=== PATIENT | female | born 1960 | race Caucasian/White ===

== ENCOUNTER 2019-09-09 09:09 | Inpatient (IN) ==
--- NOTE | 2019-08-02 11:05 | PAT Medication Instructions ---
Medication Instructions Date of Service August 02, 2019 Home Medications baclofen 20 mg PO UD bisacodyl 5 mg PO HS buspirone 15 mg PO UD cholecalciferol (vitamin D3) [Vitamin D3] 5,000 unit PO DAILY diclofenac sodium 50 mg PO TID PRN hydrocortisone 15 mg PO BID indomethacin 50 mg PO BID PRN iron 1 tab PO DAILY levothyroxine [Synthroid] 88 mcg PO QAM lidocaine [Lidoderm] 3 patch TOPICAL DAILY linaclotide [Linzess] 290 mcg PO QAM meclizine 25 mg PO TID PRN montelukast 10 mg PO QAM oxycodone-acetaminophen [Percocet] 1 tab PO QID PRN pantoprazole 40 mg PO BID paroxetine HCl 40 mg PO QAM pregabalin [Lyrica] 150 mg PO BID rosuvastatin 10 mg PO HS tiotropium bromide [Spiriva Respimat] 2 puff INHALATION DAILY topiramate [Topamax] 100 mg PO UD ASK your surgeon for instructions diclofenac sodium 50 mg PO TID PRN indomethacin 50 mg PO BID PRN DO NOT take the morning of surgery baclofen 20 mg PO UD cholecalciferol (vitamin D3) [Vitamin D3] 5,000 unit PO DAILY iron 1 tab PO DAILY lidocaine [Lidoderm] 3 patch TOPICAL DAILY linaclotide [Linzess] 290 mcg PO QAM montelukast 10 mg PO QAM Take morning of surgery With a small sip of water, OTHERWISE NOTHING TO EAT OR DRINK AFTER MIDNIGHT: buspirone 15 mg PO UD (if needed) hydrocortisone 15 mg PO BID levothyroxine [Synthroid] 88 mcg PO QAM meclizine 25 mg PO TID PRN (if needed) oxycodone-acetaminophen [Percocet] 1 tab PO QID PRN (if needed, may be taken up to four hours before surgery) pantoprazole 40 mg PO BID paroxetine HCl 40 mg PO QAM pregabalin [Lyrica] 150 mg PO BID tiotropium bromide [Spiriva Respimat] 2 puff INHALATION DAILY topiramate [Topamax] 100 mg PO UD (if needed) Take evening before surgery baclofen 20 mg PO UD (if needed) bisacodyl 5 mg PO HS buspirone 15 mg PO UD (if needed) hydrocortisone 15 mg PO BID meclizine 25 mg PO TID PRN (if needed) oxycodone-acetaminophen [Percocet] 1 tab PO QID PRN (if needed) pantoprazole 40 mg PO BID pregabalin [Lyrica] 150 mg PO BID rosuvastatin 10 mg PO HS tiotropium bromide [Spiriva Respimat] 2 puff INHALATION DAILY topiramate [Topamax] 100 mg PO UD Other Notes If you have any questions please call us at [phone] or [phone] or [phone] or [phone]
--- NOTE | 2019-08-02 11:16 | Anesthesiology Consultation ---
Date of Service August 02, 2019 Assessment & Plan (1) Encounter for pre-operative examination: Endoscopic sinus surgery 04/10/14 = LMA #4 placed without incidence. Chart Review Chart Review: Acceptable Risk for Surgery and Patient seen in Pre Admission Testing Teaching & Discussion Instructed NPO after midnight before surgery, except medications with 15 cc of water. Medication instructions provided according to the PAT guidelines. History Surgery Operation Date: 09/02/19 13:35 Proposed Procedures p L4-L5 Decompression, Possible L5-S1 Fusion, Spinal Cord Monitoring - Pedro Luis Todd DO Height/Weight Height: 5 ft 5 in Weight: 69.2 kg Allergies Allergy/AdvReac Type Severity Reaction Status Date / Time blue dye Allergy Mild face swells Verified 07/26/19 11:42 duloxetine Allergy Mild face swells Verified 07/26/19 11:42 morphine AdvReac Intermediate violent Verified 08/05/19 09:28 vomiting DEMEROL AdvReac Intermediate violent Uncoded 08/05/19 09:28 vomiting Medications Home Medications Medication Instructions Recorded Confirmed Last Taken baclofen 20 mg PO UD 07/26/19 07/26/19 Unknown bisacodyl 5 mg PO HS 07/26/19 07/26/19 Unknown buspirone 15 mg PO UD 07/26/19 07/26/19 Unknown cholecalciferol (vitamin D3) 5,000 unit PO DAILY 07/26/19 07/26/19 Unknown [Vitamin D3] diclofenac sodium 50 mg PO TID PRN 07/26/19 07/26/19 Unknown hydrocortisone 15 mg PO BID 07/26/19 07/26/19 Unknown indomethacin 50 mg PO BID PRN 07/26/19 07/26/19 Unknown iron 1 tab PO DAILY 07/26/19 07/26/19 Unknown lidocaine [Lidoderm] 3 patch TOPICAL DAILY 07/26/19 07/26/19 Unknown linaclotide [Linzess] 290 mcg PO QAM 07/26/19 07/26/19 Unknown meclizine 25 mg PO TID PRN 07/26/19 07/26/19 Unknown montelukast 10 mg PO QAM 07/26/19 07/26/19 Unknown oxycodone-acetaminophen [Percocet] 1 tab PO QID PRN 07/26/19 07/26/19 Unknown pantoprazole 40 mg PO BID 07/26/19 07/26/19 Unknown paroxetine HCl 40 mg PO QAM 07/26/19 07/26/19 Unknown pregabalin [Lyrica] 150 mg PO BID 07/26/19 07/26/19 Unknown rosuvastatin 10 mg PO HS 07/26/19 07/26/19 Unknown tiotropium bromide [Spiriva 2 puff INHALATION DAILY 07/26/19 07/26/19 Unknown Respimat] topiramate [Topamax] 100 mg PO UD 07/26/19 07/26/19 Unknown levothyroxine [Synthroid] 75 mcg PO QAM 08/02/19 08/02/19 Unknown Past Medical History Medical History Abnormality of pituitary gland Following with endocrinology Anxiety Borderline hyperlipidemia Chronic sinusitis Degenerative disc disease Depression Empty sella syndrome Fibromyalgia GERD (gastroesophageal reflux disease) History of syncope hospitalized [facility] Jan 2019 for syncope. reports cardiac workup was negative. syncope r/t thyroid function; thyroid medication adjusted - no issues since Hypothyroidism Intracranial hypertension idiopathic - follows w/ Dr. Oneill in [place] Migraines Osteoarthritis Scoliosis Smoker says this is why she uses Spiriva (presumed COPD, but CXR WNL) Spinal stenosis TMJ (temporomandibular joint disorder) Has never locked. Exercise / Class Metabolic Activity II 4-5 Yardwork/Stairs/Walk up hill (Denies CP or SOB with 1 FOS but moves slo wly 2/2 chronic pain) Past Family History Family History Mother Family history of diabetes mellitus Brother Family history of diabetes mellitus Sister Family history of diabetes mellitus Sister Family history of diabetes mellitus Brother Family history of diabetes mellitus Other No family history of adverse response to anesthesia Past Surgical History Surgical History History of appendectomy History of carpal tunnel release of both wrists History of section History of colonoscopy History of esophagogastroduodenoscopy (EGD) History of lumbar discectomy History of prior ablation treatment for back pain History of sinus surgery History of tonsillectomy History of total abdominal hysterectomy and bilateral salpingo-oophorectomy History of tubal ligation Past Anesthesia History No Hx of Anesthesia Complications and No Family Hx of Anesthesia Complications History of PONV No Hx of PONV and Hx of Motion Sickness (only with reading in a car) Social History Smoking Status: Current every day smoker tobacco type: cigarettes Smoking cigarettes per day: 1/2 - 1 ppd Do You Dip or Chew Tobacco: No Hx Alcohol Use: No Hx Substance Use: No substance use type: does not use Review of Systems Pt denies any recent chest pain, shortness of breath, palpitations, cough, fever or URI. Physical Exam Vital Signs BP: 110/76 P: 70bpm SPO2: 97% RA T: 98.1 F R: 16 ENMT Mouth: + dental restorations ("composite" in lower R cuspid) and + chipped teeth; no loose teeth Thyromental Distance: > or= 3.5 Finger Breadths (.5) Mallampati Class: I Neck normal visual inspection; neck extension not limited (but + pain with full extension) Respiratory normal respiratory effort Auscultation: + diminished lung sounds (B/L) and + rhonchi (Inspiratory R side, L side CTA) Cardiovascular Rate/Rhythm: regular rate and regular rhythm Heart Sounds: no murmur Vessels: no carotid bruit Extremities: no edema Testing Laboratory Results 08/02/19 11:29 08/02/19 11: PT 9.9 Seconds (9.0-12.0) 08/02/19 11: INR 0.9 (0.9-1.1) 08/02/19 11:29 APTT 23.5 Seconds (21.0-31.0) 08/02/19 11:29 Urine Color Yellow 08/02/19 11:29 Urine Appearance Clear (Clear) 08/02/19 11:29 Urine pH 7.0 (4.5-7.5) 08/02/19 11:29 Ur Specific [place] 1.009 (1.000-1.030) 08/02/19 11: Urine Protein Negative (Negative) 08/02/19 11: Urine Glucose (UA) Negative (Negative) 08/02/19 11: Urine Ketones Negative (Negative) 08/02/19 11: Urine Nitrite Negative (Negative) 08/02/19 11:29 Ur Leukocyte Esterase Negative (Negative) 08/02/19 11:29 Blood Type A Positive 08/02/19 11: Antibody Screen NEGATIVE 08/02/19 11:29 Electrocardiogram Date: 08/02/19 Findings: + NSR @ (60bpm) Low voltage QRS. No significant change from 2013 EKG. Chest X-Ray Date: 08/02/19 Findings: + NAD Echocardiogram Date: 04/11/19 EF: 55% Normal EF. Normal right ventricular size and function. Normal atria. Mild mitral regurgitation. Mild pulmonic regurgitation.
--- NOTE | 2019-08-02 11:59 | XRay Report ---
XR chest Pre-admission PA/Lat HISTORY: Preop. COMPARISON: Chest 02/27/2016. FINDINGS: The lungs are clear. Cardiac silhouette is normal in size. No pleural effusions. No pneumot horax. IMPRESSION: No acute process. ACT 112: Negative or not required by law. Electronically signed by: Rony Bruno M.D. 08/02/2019 11:58 AM
[2019-08-02 12:15] LABS: Appearance Urine Clear (Clear); Basophils # (auto) 0.06 K/uL (0-0.2); Basophils % (auto) 0.8 %; Bilirubin Urine Negative (Negative); Blood Urine Negative (Negative); Color Urine Yellow; Eosinophils # (auto) 0.25 K/uL (0-0.5); Eosinophils % (auto) 3.3 %; Glucose Urine UA Negative (Negative); Hematocrit (blood only) 39.9 % (37-47); Hemoglobin 12.6 g/dL (12.0-16.0); Immature Granulocytes # (auto) 0.05 K/uL (0.00-0.02); Immature Granulocytes % (auto) 0.7 %; Ketones Urine Negative (Negative); Leukocyte Esterase Urine Negative (Negative); Lymphocytes # (auto) 1.54 K/uL (1.2-3.4); Lymphocytes % (auto) 20.5 %; Mean Corpuscular Hemoglobin 29.1 pg (25-34); Mean Corpuscular Hgb Conc 31.6 g/dL (32-36); Mean Corpuscular Volume 92.1 fL (80-100); Mean Platelet Volume 11.3 fL (7.4-10.4); Monocytes # (auto) 0.71 K/uL (0.11-0.59); Monocytes % (auto) 9.4 %; Neutrophils # (auto) 4.91 K/uL (1.4-6.5); Neutrophils % (auto) 65.3 %; Nitrite Urine Negative (Negative); Platelet Count 209 K/uL (130-400); Protein Urine Negative (Negative); RDW Standard Deviation 51.1 fL (36.4-46.3); Red Blood Count 4.33 M/uL (4.2-5.4); Specific Gravity Urine 1.009 (1.000-1.030); Urobilinogen Urine Negative (Negative); White Blood Count 7.52 K/uL (4.8-10.8)
[2019-08-02 12:24] LABS: BUN Creatinine Ratio 20.9 (10-20); Calcium 8.8 mg/dl (8.5-10.1); Creatinine Clr Calc Pharmacy 58.9 ml/min; Est GFR (African American) 69.9; Est GFR (Non-African American) 60.3; Potassium 4.5 mmol/L (3.5-5.1)
[2019-08-02 12:27] LABS: INR 0.9 (0.9-1.1); Partial Thromboplastin Ratio 0.8; Partial Thromboplastin Time 23.5 Seconds (21.0-31.0); Prothrombin Time 9.9 Seconds (9.0-12.0)
--- NOTE | 2019-08-02 15:57 | Electrocardiogram Report ---
Test Reason : Blood Pressure : / mmHG Vent. Rate : 060 BPM Atrial Rate : 060 BPM P-R Int : 148 ms QRS Dur : 086 ms QT Int : 424 ms P-R-T Axes : 050 -07 042 degrees QTc Int : 424 ms Normal sinus rhythm Low voltage QRS Borderline ECG When compared with ECG of 18-MAR-2014 11:45, No significant change was found Confirmed by Freddy Lafleur ([id number]) on 08/02/2019 3:56:36 PM Referred By: Pedro Luis Todd Confirmed By:Tyrone Lafleur
--- NOTE | 2019-08-30 11:59 | History & Physical Report ---
Date of Service August 30, 2019 Assessment & Plan (1) Neurogenic claudication due to lumbar spinal stenosis: At this time the patient is noting marked decline in ability to ambulate secondary to both pain and weakness. She clinically demonstrates deficits to testing lower extremities. Subsequently I am recommending urgent decompression fusion at L4-5 and possibly L5-S1. Hopefully urgently addressing her neural compression will eliminate the risk of permanent neurologic sequelae in the form of weakness and lower extremity dysfunction. Brace benefits pros cons and alternatives were outlined in detail. This time we will try to have surgery range performed the rest of the time. Present on Admission?: Yes History of Present Illness Chief Complaint: Back with bilateral leg pain and weakness Primary Care Provider: Kirk Goodrich DO This is a 58-year-old female who presents with back pain and bilateral leg pain and weakness. Is been progressive in nature. She is undergone extensive course of nonoperative care and now notes marked limitation with ambulation with progressive bilateral leg weakness. Allergies Allergy/AdvReac Type Severity Reaction Status Date / Time blue dye Allergy Mild face swells Verified 07/26/19 11:42 duloxetine Allergy Mild face swells Verified 07/26/19 11:42 meperidine [From Demerol] AdvReac Intermediate VIOLENT Verified 08/27/19 08:27 VOMITING morphine AdvReac Intermediate violent Verified 08/05/19 09:28 vomiting Home Medications Home Medications Medication Instructions Recorded Confirmed Type baclofen 20 mg PO UD 07/26/19 07/26/19 History bisacodyl 5 mg PO HS 07/26/19 07/26/19 History buspirone 15 mg PO UD 07/26/19 07/26/19 History cholecalciferol (vitamin D3) 5,000 unit PO DAILY 07/26/19 07/26/19 History [Vitamin D3] diclofenac sodium 50 mg PO TID PRN 07/26/19 07/26/19 History hydrocortisone 15 mg PO BID 07/26/19 07/26/19 History indomethacin 50 mg PO BID PRN 07/26/19 07/26/19 History iron 1 tab PO DAILY 07/26/19 07/26/19 History lidocaine [Lidoderm] 3 patch TOPICAL DAILY 07/26/19 07/26/19 History linaclotide [Linzess] 290 mcg PO QAM 07/26/19 07/26/19 History meclizine 25 mg PO TID PRN 07/26/19 07/26/19 History montelukast 10 mg PO QAM 07/26/19 07/26/19 History oxycodone-acetaminophen [Percocet] 1 tab PO QID PRN 07/26/19 07/26/19 History pantoprazole 40 mg PO BID 07/26/19 07/26/19 History paroxetine HCl 40 mg PO QAM 07/26/19 07/26/19 History pregabalin [Lyrica] 150 mg PO BID 07/26/19 07/26/19 History rosuvastatin 10 mg PO HS 07/26/19 07/26/19 History tiotropium bromide [Spiriva 2 puff INHALATION DAILY 07/26/19 07/26/19 History Respimat] topiramate [Topamax] 100 mg PO UD 07/26/19 07/26/19 History levothyroxine [Synthroid] 75 mcg PO QAM 08/02/19 08/02/19 History Past Med/Surg History Medical History Abnormality of pituitary gland Following with endocrinology Anxiety Borderline hyperlipidemia Chronic sinusitis Degenerative disc disease Depression Empty sella syndrome Fibromyalgia GERD (gastroesophageal reflux disease) History of syncope hospitalized [facility] Jan 2019 for syncope. reports cardiac workup was negative. syncope r/t thyroid function; thyroid medication adjusted - no issues since Hypothyroidism Intracranial hypertension idiopathic - follows w/ Dr. Oneill in [place] Migraines Osteoarthritis Scoliosis Smoker says this is why she uses Spiriva (presumed COPD, but CXR WNL) Spinal stenosis TMJ (temporomandibular joint disorder) Has never locked. Surgical History History of appendectomy History of carpal tunnel release of both wrists History of section History of colonoscopy History of esophagogastroduodenoscopy (EGD) History of lumbar discectomy History of prior ablation treatment for back pain History of sinus surgery History of tonsillectomy History of total abdominal hysterectomy and bilateral salpingo-oophorectomy History of tubal ligation Family History Mother Family history of diabetes mellitus Brother Family history of diabetes mellitus Sister Family history of diabetes mellitus Sister Family history of diabetes mellitus Brother Family history of diabetes mellitus Other No family history of adverse response to anesthesia Social History Preferred Language: Togolese Communication Ability: Effective 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: No Beliefs That Will Affect Care: None Current Living Situation: Significant Other Other Information That Helps Us Care for You: No Feels Safe at Home: Yes Safety Concerns: Feels Safe At This Time Smoking Status: Current every day smoker Tobacco Type: cigarettes ; Cigarettes Per Day: 1/2 - 1 ppd ; Do You Dip or Chew Tobacco: No ; Second Hand Exposure: Yes (as a child) ; Tobacco Cessation Education Requested by Patient: No Hx Alcohol Use: No Hx Substance Use: No Physical Exam Physical Exam: Patient is alert and oriented 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 She notes the onset of bilateral quadricep weakness immediately. Bench exam reveals 4/5 bilateral quadriceps and dorsiflexion. Sensory appears to be symmetric and intact. There are no gross tension signs on today's exam. Heart is regular rate and rhythm Lungs clear to auscultation Results & Data Diagnostic Findings MRI lumbar spine demonstrates significant to space collapse at L5-S1. There is right greater than left neuroforaminal disease L4-5 and L5-S1. Axillary views demonstrate significant to severe central lateral recess stenosis at L4-5 with evidence of facet cyst. L5-S1 has marked subarticular disease bilaterally.
--- NOTE | 2019-09-09 07:15 | History & Physical Bridge Note ---
Date of Service September 09, 2019 History & Physical Bridge Note I have examined the patient, reviewed the History & Physical and in the interval since the performance of the History & Physical I have noted the following changes of clinical significance: no changes noted
[~2019-09-09 09:09] MED LIST: ACETAMINOPHEN 500 MG TAB PO SCH; CEFAZOLIN 1000MG 1,000 MG/7.5 ML SYR IV SCH; CeleBREX 200 MG CAP PO SCH; DEXAMETHASONE SOD INJ 4 MG/ML VIAL ONE; GABAPENTIN 600 MG DOSE PO SCH; LIDOCAINE HCL 2% 2 ML VIAL/AMP(20MG/ML) INFIL ONE; LR 15ML/HR IV SCH; MIDAZOLAM HCL 1 MG/ML 2ML VIAL ONE; PROPOFOL IV EMULSION 10 MG/ML 20 ML VIAL IV ONE; ROCURONIUM BROMIDE 10 MG/ML 5 ML VIAL ONE; fentaNYL citrate 100 MCG/2 ML VIAL ONE
[2019-09-09] MEDS ORDERED: ePHEDrine sulfate 50 MG/ML AMP IV PRN (10:50)
[2019-09-09] MEDS ORDERED: ONDANSETRON INJ 2 MG/ML 2 ML VIAL IV PRN ×2 (10:50→15:59)
[2019-09-09] MEDS ORDERED: HYDROmorphone INJ 1 MG/ML SYRINGE IV PRN (10:50)
[2019-09-09] MEDS ORDERED: ATROPINE SULFATE 0.1 MG/ML 10ML SYR IV PRN (10:50)
[2019-09-09] MEDS ORDERED: BACITRACIN INJ 50,000 UNIT VIAL ONE (11:53)
[2019-09-09] MEDS ORDERED: BUPIVACAINE/EPINEPHRINE 0.5% MPF 1:200,000 10 ML VIAL ONE (11:54)
[2019-09-09] MEDS ORDERED: ePHEDrine sulfate 50 MG/ML AMP ONE (12:49)
[2019-09-09] MEDS ORDERED: GLYCOPYRROLATE 0.2 MG/ML VIAL ONE (13:51)
[2019-09-09] MEDS ORDERED: NEOSTIGMINE METHYLSULFATE 5 MG/5 ML SYR ONE (13:51)
[2019-09-09] MEDS ORDERED: FLOSEAL HEMOSTATIC MATRIX 10ML TOP ONE (14:09)
[2019-09-09] MEDS ORDERED: DURASEAL DURAL SEALANT 5ML TOP ONE (14:10)
--- NOTE | 2019-09-09 14:11 | Operative Report ---
Post Operative Report Pre & Post Diagnosis Operation Date: 09/09/19 07:15 Pre-Op Diagnosis: LUMBAR SPINAL STENOSIS W NEUROGENIC CLAUDICATION Post-Op Diagnosis: LUMBAR SPINAL STENOSIS W NEUROGENIC CLAUDICATION I identified the patient and participated in the time-out.: Yes Procedure Operation Date: 09/09/19 07:15 Actual Procedures #1 lumbar decompression with bilateral medial facetectomies and foraminotomies L3-4, L4-5 and L5-S1. #2 posterior spinal fusion L4-5 L5-S1. #3 placement of posterior instrumentation L4-5 L5-S1. #4 placement locally harvested morselized autograft in the posterior lateral gutters. #5 placement infuse collagen sponge, master graft in the posterior lateral gutters. Surgeon Pedro Luis Todd DO Licensed Land Surveyor Nancy Kitchen Estimated Blood Loss 150 Findings Consistent with Post-Op Diagnosis Specimens None Indications This is a 58-year-old female presents with above-mentioned diagnosis. After noting marked decline in neurologic function we move forward with urgent decompression and fusion. Description of Procedure Patient was met with identified informed consent obtained. Patient was then taken to the operative suite underwent an patient placed in a prone position on the Pillo table on top of the Les frame. All bony prominences were well- padded eyes inspected to ensure no external pressure placed upon the. This point the lumbar spine was prepped and draped in the normal sterile fashion. Sharp dissection with the assistance of Bovie cautery was performed down to and exposing the lamina and transverse processes of L4-L5 and sacral ala bilaterally. From a caudal cephalad fashion complete laminectomy of L5 L4 and partial laminectomy L3 was performed including medial facetectomies and foraminotomies addressing severe spinal stenosis. Pedicle screws were then placed in L4-L5 and S1 levels bilaterally with assistance of fluoroscopy the process isaura locked in position. A less than 1 mm midline durotomy was noted. 4-0 Nurolon was utilized to close the durotomy site. A small amount of DuraSeal was then placed over the suture. No evidence of any further leak was noted. Transverse processes of L4-L5 and sacral ala were then burred to subcortical bleeding bone. Infuse collagen sponge master graft local autograft was then placed in the posterior lateral gutters. 15 round TEMITOPE drain inserted. Incision was then closed with 1 Vicryl the fascia 2-0 Vicryl subcutaneously and 4 Monocryl for final skin closure. Steri-Strip sterile dressings placed. Patient waken taken to PACU stable condition. Please note spinal cord monitoring was utilized that the procedure no changes noted. Lastly Nancy Kitchen was present at the entire procedure involved in patient positioning complex portions of the surgery and final skin closure. I attest to the content of the Intraoperative Record and any orders documented therein. Any exceptions are noted below.
--- NOTE | 2019-09-09 14:30 | Fluoroscopy Report ---
FL lumbar spine 2-3V CLINICAL HISTORY: 58 years-old Female presenting with L4-S1 DECOMPRESSION AND FUSION. TECHNIQUE: 2 fluoroscopic image(s) recorded as part of an intraoperative procedure. COMPARISON: 03/25/2016. FINDINGS/IMPRESSION: Posterior bilateral transpedicular screw and isaura fixation of L4-S1 new from prior exam. Laminectomies of L4 and L5 also new from prior. Normal anatomic alignment. Please see surgical report for further details. Fluoroscopy dosage (mGy): 40.73. Fluoroscopy time: 20.0 seconds. Number or time of high level fluoroscopy (HLF), digital spot, or digital subtraction images: 0. ACT 112: Negative or not required by law. Electronically signed by: Kolby Ventura M.D. 09/09/2019 2:29 PM
[2019-09-09] MEDS ORDERED: fentaNYL citrate 100 MCG/2 ML VIAL ONE ×2 (14:56→15:07)
[2019-09-09] MEDS ORDERED: ONDANSETRON INJ 2 MG/ML 2 ML VIAL ONE (14:56)
[2019-09-09] MEDS: fentaNYL citrate 100 MCG/2 ML VIAL IV PRN ×4 (14:57→15:12)
--- NOTE | 2019-09-09 15:57 | Anesthesiology Progress Note ---
Date of Service September 09, 2019 Anesthesia Post Procedure Vital Signs Vital Signs: Temp Pulse Pulse Resp BP Pulse Ox 09/09/19 15:44 68 16 124/77 100 09/09/19 15:35 36.6 C 64 16 117/72 100 09/09/19 15:25 36.6 C 68 16 119/69 100 09/09/19 15:15 67 16 118/75 100 09/09/19 15:05 80 16 136/78 100 09/09/19 14:55 87 16 122/81 100 09/09/19 14:46 36.2 C L 75 16 137/78 100 09/09/19 10:07 37 C 57 L 16 125/80 98 Transfer of Care Handoff Completed per policy Notes Mental Status: alert / awake / arousable Patient Amnestic to Procedure: Yes Nausea / Vomiting: adequately controlled Pain: adequately controlled Airway Patency, RR, SpO2: stable & adequate BP & HR: stable & adequate Hydration State: stable & adequate Anesthetic Complications: no major complications apparent
[2019-09-09] MEDS ORDERED: bisacodyL 10 MG SUPP PR PRN (15:59)
[2019-09-09] MEDS ORDERED: LORazepam 0.5 MG TAB PO PRN (15:59)
[2019-09-09] MEDS ORDERED: ALUMINUM/MAGNESIUM SUSP 30 ML UDC PO PRN (15:59)
[2019-09-09] MEDS ORDERED: LORazepam 0.5 MG/1 ML VIAL IV PRN (15:59)
[2019-09-09] MEDS ORDERED: MAGNESIUM HYDROXIDE SUSP 30 ML UDC PO PRN (15:59)
[2019-09-09] MEDS ORDERED: SOD PHOSPHATE/SOD BIPHOSPHATE ENEMA 132 ML BTL PR PRN (15:59)
[2019-09-09] MEDS ORDERED: DO NOT ADMINISTER FLU VACCINE PRN (15:59)
[2019-09-09] MEDS ORDERED: DO NOT ADMINISTER PNEUMOCOCCAL VACCINE PRN (15:59)
[2019-09-09] MEDS ORDERED: FAMOTIDINE 20 MG TAB PO PRN (15:59)
[2019-09-09] MEDS ORDERED: NALOXONE HCL 0.4 MG/1 ML VIAL/CARP IV PRN (15:59)
[2019-09-09] MEDS ORDERED: ACETAMINOPHEN 1,000 MG/100 ML VIAL IV PRN (15:59)
[2019-09-09] MEDS ORDERED: HYDROmorphone INJ 0.5 MG/0.5 ML SYR IV PRN (15:59)
[2019-09-09] MEDS ORDERED: PROMETHAZINE HCL 12.5 MG in SODIUM CHLORIDE 0.9% 50 ML IV PRN (15:59)
[2019-09-09] MEDS ORDERED: METOCLOPRAMIDE HCL INJ 5 MG/ML 2 ML VIAL IV PRN (15:59)
[2019-09-09] MEDS ORDERED: ONDANSETRON 4 MG OD TAB PO PRN (15:59)
[2019-09-09] MEDS: LACTATED RINGER'S 1,000 ML IV SCH ×2 (16:00→18:57)
[2019-09-09] MEDS ORDERED: MECLIZINE HCL 25 MG TAB PO PRN (16:53)
--- NOTE | 2019-09-09 16:57 | Consultation ---
Date of Consultation September 09, 2019 Assessment & Plan (1) Status post lumbar surgery: Post op day# 0 S/P L3-S1 decompression and L4-S1 fusion by Dr Peyton CORRALES#150ml -pain management per ortho -wound management per ortho -PT/OT as appropriate -DVT prophylaxis per ortho -incentive spirometry -monitor H&H for acute blood loss anemia; pre-op Hgb: 12.6 (2) Empty sella syndrome: Follows with Dr Ojeda End[facility]inology in [place] -Continue hydrocortisone (3) Hypothyroidism: -Continue levothyroxine (4) Migraines: Follows with Dr Oneill - neurology [place] -Continue Topamax (5) Borderline hyperlipidemia: -Continue statin (6) Anxiety: (7) Depression: -Continue buspirone, paroxetine DVT Prophylaxis -SCDs per ortho Disposition per primary service Follows with Dr Goodrich in [place], [place] for routine care Pt was seen and care coordinated with Dr Rodriguez. See addendum Thank you for this consultation. We will follow the patient with you during their hospital stay. You can reach a member of the [facility] Hospitalist Team 28/11 via pager @ [phone]. Supervising Physician Co-Signing Physician Notes I, Dr. Omar Rodriguez, have seen and examined the patient with physician events and promotions assistant and agree with the assessment and plan as above and would like to commented that on physical exam General: no acute distress, patient resting on her back and report some back pain Back: has TEMITOPE drain from surgical site draining serosanguinous fluid Lungs: on nasal cannula oxygen, no wheezing Heart: regular rate Extremities: able to move the arms, Legs in SCDs, can wiggle the toes bilaterally LUMBAR SPINAL STENOSIS WITH NEUROGENIC CLAUDICATION S/P Lumbar spinal surgery -performed by Dr. Farfan (1 lumbar decompression with bilateral medial facetectomies and foraminotomies L3-4, L4-5 and L5-S1. #2 posterior spinal fusion L4-5 L5-S1. #3 placement of posterior instrumentation L4-5 L5-S1. #4 placement locally harvested morselized autograft in the posterior lateral gutters. 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 Todd. Postop patient reporting some back pain. Denies any pain or paresthesias to lower extremities. No nausea or vomiting. Has Sorensen catheter in place. Denies fever/chills, diaphoresis, N/V/D/C, RIVERO, dizziness, syncope, vision changes, neck pain, CP, SOB, orthopnea, palpitations, cough, sore throat, choking, otalgia, rhinorrhea, abdominal pain, paresthesias, extremity weakness, extremity edema, rashes, urinary symptoms. Allergies Allergy/AdvReac Type Severity Reaction Status Date / Time blue dye Allergy Mild face swells Verified 09/09/19 09:43 duloxetine Allergy Mild face swells Verified 09/09/19 09:43 meperidine [From Demerol] AdvReac Intermediate VIOLENT Verified 09/09/19 09:43 VOMITING morphine AdvReac Intermediate violent Verified 09/09/19 09:43 vomiting Home Medications Home Medications Medication Instructions Recorded Confirmed Type baclofen 20 mg PO UD 07/26/19 09/09/19 History bisacodyl 5 mg PO HS 07/26/19 09/09/19 History buspirone 15 mg PO UD 07/26/19 09/09/19 History cholecalciferol (vitamin D3) 5,000 unit PO DAILY 07/26/19 09/09/19 History [Vitamin D3] diclofenac sodium 50 mg PO TID PRN 07/26/19 09/09/19 History hydrocortisone 15 mg PO BID 07/26/19 09/09/19 History indomethacin 50 mg PO BID PRN 07/26/19 09/09/19 History iron 1 tab PO DAILY 07/26/19 09/09/19 History lidocaine [Lidoderm] 3 patch TOPICAL DAILY 07/26/19 09/09/19 History linaclotide [Linzess] 290 mcg PO QAM 07/26/19 09/09/19 History meclizine 25 mg PO TID PRN 07/26/19 09/09/19 History montelukast 10 mg PO QAM 07/26/19 09/09/19 History oxycodone-acetaminophen [Percocet] 1 tab PO QID PRN 07/26/19 09/09/19 History pantoprazole 40 mg PO QAM 07/26/19 09/09/19 History paroxetine HCl 40 mg PO QAM 07/26/19 09/09/19 History pregabalin [Lyrica] 150 mg PO BID 07/26/19 09/09/19 History rosuvastatin 10 mg PO HS 07/26/19 09/09/19 History tiotropium bromide [Spiriva 2 puff INHALATION DAILY 07/26/19 09/09/19 History Respimat] topiramate [Topamax] 100 mg PO UD 07/26/19 09/09/19 History levothyroxine [Synthroid] 75 mcg PO QAM 08/02/19 09/09/19 History sucralfate [Carafate] 1 g PO BID 09/06/19 09/09/19 History varenicline [Chantix] 1 mg PO UD 09/06/19 09/09/19 History Patient History Medical History Abnormality of pituitary gland Following with endocrinology Anxiety Borderline hyperlipidemia Chronic sinusitis Degenerative disc disease Depression Empty sella syndrome Fibromyalgia GERD (gastroesophageal reflux disease) History of syncope hospitalized [facility] Jan 2019 for syncope. reports cardiac workup was negative. syncope r/t thyroid function; thyroid medication adjusted - no issues since Hypothyroidism Intracranial hypertension idiopathic - follows w/ Dr. Oneill in [place] Migraines Osteoarthritis Scoliosis Smoker says this is why she uses Spiriva (presumed COPD, but CXR WNL) Spinal stenosis TMJ (temporomandibular joint disorder) Has never locked. Surgical History History of appendectomy History of carpal tunnel release of both wrists History of section History of colonoscopy History of esophagogastroduodenoscopy (EGD) History of lumbar discectomy History of prior ablation treatment for back pain History of sinus surgery History of tonsillectomy History of total abdominal hysterectomy and bilateral salpingo-oophorectomy History of tubal ligation Family History Mother Family history of diabetes mellitus Brother Family history of diabetes mellitus Sister Family history of diabetes mellitus Sister Family history of diabetes mellitus Brother Family history of diabetes mellitus Other No family history of adverse response to anesthesia Social History (Updated 09/09/19 @ 16:52 by Sonia Valderrama PA-C) Preferred Language: Portuguese Communication Ability: Effective National Sales Director Required: No Beliefs That Will Affect Care: None Current Living Situation: Significant Other Other Information That Helps Us Care for You: No Feels Safe at Home: Yes Safety Concerns: Feels Safe At This Time Smoking Status: Former smoker Tobacco Type: cigarettes ; Cigarettes Per Day: 1/2 - 1 ppd ; Do You Dip or Chew Tobacco: No ; Smoking End Date: 09/08/2019 ; Second Hand Exposure: Yes (as a child) ; Tobacco Cessation Education Requested by Patient: No Hx Alcohol Use: No Hx Substance Use: No Review of Systems Review of Systems: All systems reviewed & are unremarkable except as noted in HPI & below Physical Exam Physical Exam: General: no distress, WDWN Head: normocephalic, atraumatic Eyes: PERRL, conjunctiva non-injected, anicteric ENT: normal inspection external ears, nose, mucous membranes moist Neck: supple, trachea midline Lungs: clear, no respiratory distress, no wheezing/rhonchi/rales CV: RRR, no murmur, no pretibial edema Abd: normal BS, soft, non-tender Back: surgical dressing in place is dry, TEMITOPE drain in place with scant serosanguineous drainage Ext: no erythema, non-tender, no calf tenderness; bilateral pedal pushes and pulls intact, distal pulses intact, sensation to light touch intact Neuro: A&O x 3, no focal deficits noted, normal affect Skin: warm, dry Results & Data ([facility]) Vital Signs (Past 12 Hours) Vital Signs Temp Pulse Pulse Resp BP Pulse Ox 09/09/19 16:36 36.7 C 66 16 130/77 100 09/09/19 15:44 68 16 124/77 100 09/09/19 15:35 36.6 C 64 16 117/72 100 09/09/19 15:25 36.6 C 68 16 119/69 100 09/09/19 15:15 67 16 118/75 100 09/09/19 15:05 80 16 136/78 100 09/09/19 14:55 87 16 122/81 100 09/09/19 14:46 36.2 C L 75 16 137/78 100 09/09/19 10:07 37 C 57 L 16 125/80 98
[2019-09-09] MEDS ORDERED: [UNRECOGNIZED DRUG - REMARK] SCH (18:00)
[2019-09-09] MEDS: KETOROLAC TROMETHAMINE 15 MG/ML VIAL IV SCH (19:02)
[2019-09-09] MEDS: LINZESS - ORDER AWAITING ACTION SCH (19:06)
[2019-09-09] MEDS: CEFAZOLIN 1000MG 1,000 MG/7.5 ML SYR IV SCH (19:57)
[2019-09-09] MEDS: VARENICLINE PO SCH (21:59)
[2019-09-09] MEDS: DOCUSATE SODIUM/SENNA 50/8.6MG TAB PO SCH (22:00)
[2019-09-09] MEDS: BACLOFEN 20 MG TAB PO SCH (22:01)
[2019-09-09] MEDS: SUCRALFATE 1 GM TAB PO SCH (22:01)
[2019-09-09] MEDS: HYDROCORTISONE 10 MG TAB PO SCH (22:01)
[2019-09-09] MEDS: PREGABALIN 150 MG CAP PO SCH (22:01)
[2019-09-09] MEDS: ROSUVASTATIN CALCIUM 10 MG TAB PO SCH (22:01)
[2019-09-09] MEDS: TOPIRAMATE 100 MG TAB PO SCH (22:02)
[2019-09-09] MEDS: BusPIRone 15 MG TAB PO SCH (22:07)
[2019-09-09] MEDS: OXYCODONE HCL IR 5 MG TAB (IMMEDIATE RELEASE) PO PRN (22:13)
[2019-09-10] MEDS: LINZESS - ORDER AWAITING ACTION SCH ×4 (00:38→23:14)
[2019-09-10] MEDS: KETOROLAC TROMETHAMINE 15 MG/ML VIAL IV SCH ×3 (00:40→12:14)
[2019-09-10] MEDS ORDERED: COUGH DROP (SUGAR FREE) LOZ 24 LOZ/1 BOX BUCCAL ONE (00:51)
[2019-09-10] MEDS: CEFAZOLIN 1000MG 1,000 MG/7.5 ML SYR IV SCH (03:14)
[2019-09-10] MEDS: TRAMADOL HCL 50 MG TABLET PO PRN (03:27)
[2019-09-10] MEDS: LEVOTHYROXINE SODIUM 75 MCG TABLET PO SCH (05:12)
[2019-09-10] MEDS: POLYETHYLENE (MIRALAX) 17 GM PACK PO SCH ×4 (05:13→23:13)
[2019-09-10 06:10] LABS: Basophils # (auto) 0.02 K/uL (0-0.2); Basophils % (auto) 0.2 %; Eosinophils # (auto) 0.05 K/uL (0-0.5); Eosinophils % (auto) 0.4 %; Hematocrit (blood only) 33.2 % (37-47); Hemoglobin 10.7 g/dL (12.0-16.0); Immature Granulocytes # (auto) 0.03 K/uL (0.00-0.02); Immature Granulocytes % (auto) 0.2 %; Lymphocytes # (auto) 1.74 K/uL (1.2-3.4); Lymphocytes % (auto) 14.5 %; Mean Corpuscular Hemoglobin 29.4 pg (25-34); Mean Corpuscular Hgb Conc 32.2 g/dL (32-36); Mean Corpuscular Volume 91.2 fL (80-100); Mean Platelet Volume 11.8 fL (7.4-10.4); Monocytes # (auto) 1.03 K/uL (0.11-0.59); Monocytes % (auto) 8.6 %; Neutrophils # (auto) 9.17 K/uL (1.4-6.5); Neutrophils % (auto) 76.1 %; Platelet Count 137 K/uL (130-400); RDW Coefficient of Variation 13.5 % (11.5-14.5); RDW Standard Deviation 45.5 fL (36.4-46.3); Red Blood Count 3.64 M/uL (4.2-5.4); White Blood Count 12.04 K/uL (4.8-10.8)
[2019-09-10 06:38] LABS: BUN Creatinine Ratio 16.5 (10-20); Calcium 8.1 mg/dl (8.5-10.1); Creatinine Clr Calc Pharmacy 73.8 ml/min; Est GFR (African American) 92.1; Est GFR (Non-African American) 79.4; Potassium 3.5 mmol/L (3.5-5.1)
[2019-09-10] MEDS ORDERED: POTASSIUM CHLORIDE 20 MEQ TABCR PO ONE (07:45)
--- NOTE | 2019-09-10 08:24 | Hospitalist Progress Note ---
Date of Service September 10, 2019 Assessment & Plan (1) Status post lumbar surgery: LUMBAR SPINAL STENOSIS WITH NEUROGENIC CLAUDICATION S/P Lumbar spinal surgery -performed by Dr. Todd on 09/09/2019 (1 lumbar decompression with bilateral medial facetectomies and foraminotomies L3-4, L4-5 and L5-S1. #2 posterior spinal fusion L4-5 L5-S1. #3 placement of posterior instrumentation L4-5 L5-S1. #4 placement locally harvested morselized autograft in the posterior lateral gutters. 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 On bedrest, TEMITOPE drain with more serosanguinous fluid compared to yesterday. Patient breathing comfortably. on room air. no ac traci distress. no chest pain. no abdomen pain. no nausea. back pain feels better today as per patient Review of Systems Review of Systems: All systems reviewed & are unremarkable except as noted in Subjective Physical Exam Constitutional: cooperative Eyes: PERRL, conjunctivae normal, anicteric sclerae ENMT: external ear and nose normal, oropharynx normal Neck: normal visual inspection Respiratory: normal respiratory effort Cardiovascular: Rate/Rhythm: regular rate Gastrointestinal (Abdomen): normal bowel sounds, soft, nontender, no hepatosplenomegaly Musculoskeletal: Head/Neck/Chest: normocephalic has TEMITOPE drain to back draining serosanguinous fluid Neurologic: PERRL, EOMI, accommodation nl, no face palsy, no dysarthria CN's II-XI intact bilaterally Psychiatric: A+Ox3, euthymic affect Results & Data Results & Data ([facility]) Vital Signs (Past 12 Hours) Vital Signs Temp Pulse Pulse Resp BP Pulse Ox 09/10/19 07:24 36.9 C 67 18 107/66 94 09/10/19 03:13 36.7 C 70 16 125/74 96 09/09/19 22:58 36.8 C 67 16 120/71 94
[2019-09-10] MEDS: UMECLIDINIUM BROMIDE 62.5MCG/BLISTER 7 PUFFS/INHALER INH SCH (09:15)
[2019-09-10] MEDS: CHOLECALCIFEROL 1,000 UNITS 25 MCG TAB PO SCH (09:15)
[2019-09-10] MEDS: BACLOFEN 10 MG TAB PO SCH (09:16)
[2019-09-10] MEDS: MONTELUKAST SODIUM 10 MG TABLET PO SCH (09:16)
[2019-09-10] MEDS: SUCRALFATE 1 GM TAB PO SCH ×2 (09:16→21:19)
[2019-09-10] MEDS: PARoxetine HCL 20 MG TAB PO SCH (09:16)
[2019-09-10] MEDS: BUSPIRONE HCL 7.5 MG TAB PO SCH (09:16)
[2019-09-10] MEDS: HYDROCORTISONE 10 MG TAB PO SCH ×2 (09:16→21:20)
[2019-09-10] MEDS: PANTOprazole 40 MG TAB PO SCH (09:16)
[2019-09-10] MEDS: TOPIRAMATE 100 MG TAB PO SCH ×2 (09:23→21:19)
[2019-09-10] MEDS: PREGABALIN 150 MG CAP PO SCH ×2 (09:27→21:44)
--- NOTE | 2019-09-10 11:01 | Orthopedic Progress Note ---
Date of Service September 10, 2019 Assessment & Plan (1) Neurogenic claudication due to lumbar spinal stenosis: At this time we will initiate bed to chair hopefully with all of her meals. If she has tolerable day today will advance to more physical therapy tomorrow. Present on Admission?: Yes Admission and Anticipated Discharge Date Admission Date: September 09, 2019 Subjective Back pain controlled leg pain markedly improved. Denies any nausea vomiting or headaches at this time. Physical Exam Physical Exam: On exam she is good strength testing. She appears comfortable. She is able to sit up in bed without discomfort. Results & Data ([facility]) Vital Signs (Past 12 Hours) Vital Signs Temp Pulse Pulse Resp BP Pulse Ox 09/10/19 07:24 36.9 C 67 18 107/66 94 09/10/19 03:13 36.7 C 70 16 125/74 96
[2019-09-10] MEDS: OXYCODONE HCL IR 5 MG TAB (IMMEDIATE RELEASE) PO PRN ×2 (15:54→23:27)
[2019-09-10] MEDS: VARENICLINE PO SCH (21:15)
[2019-09-10] MEDS: DOCUSATE SODIUM/SENNA 50/8.6MG TAB PO SCH (21:18)
[2019-09-10] MEDS: BACLOFEN 20 MG TAB PO SCH (21:18)
[2019-09-10] MEDS: BusPIRone 15 MG TAB PO SCH (21:20)
[2019-09-10] MEDS: ROSUVASTATIN CALCIUM 10 MG TAB PO SCH (21:21)
[2019-09-11] MEDS: POLYETHYLENE (MIRALAX) 17 GM PACK PO SCH ×3 (05:33→19:02)
[2019-09-11] MEDS: LEVOTHYROXINE SODIUM 75 MCG TABLET PO SCH (05:33)
[2019-09-11] MEDS: OXYCODONE HCL IR 5 MG TAB (IMMEDIATE RELEASE) PO PRN ×2 (05:46→15:41)
[2019-09-11] MEDS: TRAMADOL HCL 50 MG TABLET PO PRN ×2 (07:35→19:33)
[2019-09-11] MEDS: VARENICLINE PO SCH ×2 (08:47→20:52)
[2019-09-11] MEDS: BUSPIRONE HCL 7.5 MG TAB PO SCH (08:48)
[2019-09-11] MEDS: SUCRALFATE 1 GM TAB PO SCH ×2 (08:48→20:56)
[2019-09-11] MEDS: LINZESS - ORDER AWAITING ACTION SCH ×2 (08:48→15:30)
[2019-09-11] MEDS: HYDROCORTISONE 10 MG TAB PO SCH ×2 (08:49→20:56)
[2019-09-11] MEDS: PREGABALIN 150 MG CAP PO SCH ×2 (08:50→20:58)
[2019-09-11] MEDS: BACLOFEN 10 MG TAB PO SCH (08:50)
[2019-09-11] MEDS: UMECLIDINIUM BROMIDE 62.5MCG/BLISTER 7 PUFFS/INHALER INH SCH (08:50)
[2019-09-11] MEDS: CHOLECALCIFEROL 1,000 UNITS 25 MCG TAB PO SCH (08:51)
[2019-09-11] MEDS: TOPIRAMATE 100 MG TAB PO SCH ×2 (08:51→20:53)
[2019-09-11] MEDS: PARoxetine HCL 20 MG TAB PO SCH (08:51)
[2019-09-11] MEDS: MONTELUKAST SODIUM 10 MG TABLET PO SCH (08:51)
[2019-09-11] MEDS: PANTOprazole 40 MG TAB PO SCH (08:51)
--- NOTE | 2019-09-11 10:41 | Orthopedic Progress Note ---
Date of Service September 11, 2019 Assessment & Plan (1) Neurogenic claudication due to lumbar spinal stenosis: This time will initiate physical therapy have her begin more ambulation monitor TEMITOPE operatively discharge home the next few days. Present on Admission?: Yes Admission and Anticipated Discharge Date Admission Date: September 09, 2019 Subjective Back pain is controlled. Leg pain improved. Strength improved. Denies any nausea vomiting or headaches. Physical Exam Physical Exam: On exam she is good strength testing appears comfortable. Results & Data ([facility]) Vital Signs (Past 12 Hours) Vital Signs Temp Pulse Pulse Resp BP Pulse Ox 09/11/19 07:47 36.9 C 66 16 131/80 95 09/10/19 22:47 36.7 C 65 16 102/64 95
--- NOTE | 2019-09-11 19:39 | Hospitalist Progress Note ---
Date of Service September 11, 2019 Assessment & Plan (1) Status post lumbar surgery: LUMBAR SPINAL STENOSIS WITH NEUROGENIC CLAUDICATION S/P lumbar decompression with bilateral medial facetectomies and foraminotomies L3-4, L4-5 and L5-S1. #2 posterior spinal fusion L4-5 L5-S1. #3 placement of posterior instrumentation L4-5 L5-S1. #4 placement locally harvested morselized autograft in the posterior lateral gutters. #5 placement infuse collagen sponge, master graft in the posterior lateral gutters performed by Dr. 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 Continue home dose hydrocortisone Follows with Dr Ojeda Endocrinology in [place] (3) Hypothyroidism: Continue home dose levothyroxine (4) Migraines: Continue Topamax Follows with Dr Oneill - neurology [place] (5) Borderline hyperlipidemia: Continue statin (6) Anxiety: (7) Depression: Mood stable Continue buspirone, paroxetine DVT Prophylaxis SCDs per ortho Admission and Anticipated Discharge Date Admission Date: September 09, 2019 Subjective Pt was seen and examined Sitting in chair with no distress Pt said that she walked around in the hallway today Denies any chest pain, palpitation, dizziness and SOB Physical Exam Physical Exam: General- No acute distress Head- atraumatic Eyes- PERRL, EOMI, ENT- oropharynx clear Neck- supple, no JVD Lungs- clear to auscultation Heart- regular rhythm; no murmur Abdomen- normal bowel sounds, soft, nontender Extremities- no calf tenderness Neuro- alert, oriented x 3; PERRL, EOMI; no facial palsy; no dysarthria Skin- warm & dry Results & Data Results & Data ([facility]) Vital Signs (Past 12 Hours) Vital Signs Temp Pulse Pulse Resp BP Pulse Ox 09/11/19 15:17 37.3 C 77 16 123/83 93 09/11/19 07:47 36.9 C 66 16 131/80 95
[2019-09-11] MEDS ORDERED: LACTULOSE SYRUP 30 GM/45 ML UDP PO STA (20:29)
[2019-09-11] MEDS: SIMETHICONE 80 MG CHEW PO PRN (20:51)
[2019-09-11] MEDS: BusPIRone 15 MG TAB PO SCH (20:54)
[2019-09-11] MEDS: DOCUSATE SODIUM/SENNA 50/8.6MG TAB PO SCH (20:55)
[2019-09-11] MEDS: ROSUVASTATIN CALCIUM 10 MG TAB PO SCH (20:55)
[2019-09-11] MEDS: BACLOFEN 20 MG TAB PO SCH (20:59)
[2019-09-12] MEDS: LINZESS - ORDER AWAITING ACTION SCH ×2 (00:07→09:03)
[2019-09-12] MEDS: POLYETHYLENE (MIRALAX) 17 GM PACK PO SCH ×3 (00:07→12:58)
[2019-09-12] MEDS: OXYCODONE HCL IR 5 MG TAB (IMMEDIATE RELEASE) PO PRN ×2 (00:11→09:00)
[2019-09-12] MEDS: LEVOTHYROXINE SODIUM 75 MCG TABLET PO SCH (06:19)
[2019-09-12] MEDS: SIMETHICONE 80 MG CHEW PO PRN (06:25)
[2019-09-12] MEDS: PREGABALIN 150 MG CAP PO SCH (09:00)
[2019-09-12] MEDS: HYDROCORTISONE 10 MG TAB PO SCH (09:02)
[2019-09-12] MEDS: BUSPIRONE HCL 7.5 MG TAB PO SCH (09:02)
[2019-09-12] MEDS: PANTOprazole 40 MG TAB PO SCH (09:03)
[2019-09-12] MEDS: PARoxetine HCL 20 MG TAB PO SCH (09:03)
[2019-09-12] MEDS: MONTELUKAST SODIUM 10 MG TABLET PO SCH (09:03)
[2019-09-12] MEDS: TOPIRAMATE 100 MG TAB PO SCH (09:03)
[2019-09-12] MEDS: CHOLECALCIFEROL 1,000 UNITS 25 MCG TAB PO SCH (09:04)
[2019-09-12] MEDS: UMECLIDINIUM BROMIDE 62.5MCG/BLISTER 7 PUFFS/INHALER INH SCH (09:04)
[2019-09-12] MEDS: SUCRALFATE 1 GM TAB PO SCH (09:04)
[2019-09-12] MEDS: VARENICLINE PO SCH (09:06)
[2019-09-12] MEDS: BACLOFEN 10 MG TAB PO SCH (10:17)
--- NOTE | 2019-09-12 14:47 | Discharge Summary ---
Date of Service September 12, 2019 Admission HPI Per Admitting Provider This is a 58-year-old female who presents with back pain and bilateral leg pain and weakness. Is been progressive in nature. She is undergone extensive course of nonoperative care and now notes marked limitation with ambulation with progressive bilateral leg weakness. Principal Diagnosis Lumbar spinal stenosis with neurogenic claudication Discharge Data Allergies Allergy/AdvReac Type Severity Reaction Status Date / Time blue dye Allergy Mild face swells Verified 09/09/19 09:43 duloxetine Allergy Mild face swells Verified 09/09/19 09:43 meperidine [From Demerol] AdvReac Intermediate VIOLENT Verified 09/09/19 09:43 VOMITING morphine AdvReac Intermediate violent Verified 09/09/19 09:43 vomiting Consultations 09/09/19 15:59 Consult Case Management - Discharge Planning Routine Consult Hospitalist Routine Procedures Performed Operation Date: 09/09/19 07:15 Actual Procedures p L4-S1 Decompression and Fusion, Repair of Dural Tear, Spinal Cord Monitoring(Not Applicable) - Pedro Luis Todd DO Ordered Studies 09/09/19 10:45 FL fluoroscopy <1hr Routine FL lumbar spine 2-3V Routine Hospital Course (1) Neurogenic claudication due to lumbar spinal stenosis: Patient underwent multilevel lumbar decompression fusion tolerated this well was taken to orthopedic for postoperative. Postop day 1 she began mobilization progressed to postop day #2 tolerating physical therapy having improvement of her back and leg pain. On postop day 3 pain was controlled strength intact TEMITOPE drain decreasing appropriately. Subsequently discharged home. Discharge orders and instructions found in the chart for further view. Total Time Total Time Spent Total Time Spent (In Minutes): 20 minutes Discharge Plan Discharge Items Patient Disposition: Home - Self-Care Reason For Visit: LUMBAR SPINAL STENOSIS W NEUROGENIC CLAUDICATION Discharge Diagnosis: Lumbar spinal stenosis with neurogenic claudication Activity: As commented below Non-emergency contact: Primary Care Provider Call non-emergency contact if: you have any medication questions Follow-up/Referrals: Kirk Goodrich DO [Primary Care Provider] - (Please contact your primary care provider for follow-up discharge appointment.) Diet: Regular Addtl Attending Provider Instructions: ACTIVITY RECOMMENDATIONS: SELF CARE INSTRUCTIONS AFTER THORACIC/LUMBAR FUSIONS 1. You may walk to your tolerance. It is good exercise for your legs and back. Expect some back and intermittent leg aches and pains. 2. You may perform "counter-top" level activities (make a sandwich, bridgette with a project, etc.). 3. No bending or lifting of more than 10 pounds or back twisting of any nature (roll like a log when turning in bed). 4. You may ride in a car for 20-30 minutes at a time. No driving until after your first visit with your doctor. 5. Frequent changes of position and restricting sitting to 30 minutes at a time will help limit the amount of back spasms and stiffness you may experience. 6. You may discontinue the use of ambulatory aids (cane, crutches, etc.) once your strength and confidence allow. 7. You may chair finisher the shower and let water strike your incision when you arrive home at least once daily. Do not take a tub bath, sit in a hot tub or go into a swimming pool until after your first recheck in the office. SPECIAL CARE INSTRUCTIONS: VERY IMPORTANT TO READ AND REVIEW A. Your surgical incision has been closed with a cosmetic suture under the skin that will dissolve in about 6 weeks. In 14 days, you can use a pair of clean scissors and cut the suture that is left outside of the skin at the ends of your incision. 1. The small skin tapes can be removed 7 days after surgery if they have not fallen off by that point. 2. You may keep the wound open to air as much as possible to promote healing after post-op day number 5 unless told otherwise by your doctor. 3. If you think the wound looks like it is becoming infected (redness or worsening drainage) and/or you are experiencing fever, chill or worsening back pain and muscle spasms, contact the office so that we may evaluate you as soon as possible. B. Complications are uncommon, but please contact us if you have any signs or symptoms of: 1. wound infection (fever higher than 102.5 degrees F, redness, separation of wound, drainage, or increasing pain from the incision) 2. blood clots in legs (pain, swelling, redness and warmth in legs) 3. urinary tract infection (fever higher than 102.5 degrees F, burning upon urination or increased frequency of urination) 4. nerve problems (inability to walk on your toes or heels, numbness, loss of bowel or bladder control) 5. any other symptoms that concern you C. Please call the office at if you have any concerns or questions about your operation or recovery. D. No smoking! Smoking drastically decreases the chance of a solid fusion. E. Do not take any anti-inflammatory medications (Indocin, Advil, Motrin, Aspirin, Naprosyn, etc.) as these may inhibit the chance of a solid fusion. Tylenol is okay to take for pain. MANAGING PAIN AFTER SPINAL SURGERY 1. Narcotic medication is intended for short-term use and will be provided for surgical pain. Surgical pain usually lasts for a period of 4-6 weeks. Narcotic medication includes Percocet, Vicodin, Darvocet, Tylenol #3 or Lortab. 2. Longer-term pain is more appropriately treated with non-narcotic medication such as Tylenol ES. 3. Muscle spasm is not appropriately treated with narcotics. Muscle relaxers such as Soma, Flexeril or Skelaxin can be used along with Tylenol ES. 4. Remember that we all live with some "aches and pains". This is not unusual or uncommon after an injury or as we get older. a. Back pain is expected and may include muscle spasms for 4 to 6 weeks after surgery. The pain should gradually improve. If the pain worsens for no apparent reason, please contact the office. b. Intermittent leg pain may also be experienced and should not be concerned about unless it worsens for no apparent reason. If so, please contact the office. 5. We will provide appropriate medication within the normal guidelines of their prescribed use. We will also be very cautious and aware of potential abuse and extended duration of patients' medication needs. a. Pain medications are for your comfort and to assist with sleep and rest so that the tissue can heal. They are not provided in order to return to normal activity and should not be used through the day. To do so or worsening pain at night can result from ongoing tissue damage and development of tolerance to the prescribed medicine. 6. Please allow 2-3 days to process refills. Prescriptions will not be mailed but must be picked up at the office. FOLLOW UP VISIT: Keep your scheduled follow-up appointment. Any questions, please call the office at . Pending Studies at Discharge: No Stand-Alone Forms: [facility], Opioid Pain Management, Smoking Cessation Medications and DC Order Prescriptions: New oxycodone 5 mg tablet 5 mg PO Q6H PRN (Reason: pain, severe) Qty: 30 RF: 0 Continued hydrocortisone 5 mg Tablet 15 mg PO BID RF: 0 baclofen 20 mg Tablet 20 mg PO UD RF: 0 meclizine 25 mg Tablet 25 mg PO TID PRN (Reason: Dizziness) RF: 0 pantoprazole 40 mg Tablet,Delayed Release (Dr/Ec) 40 mg PO QAM RF: 0 lidocaine [Lidoderm] 5 % Adhesive Patch,Medicated 3 patch TOPICAL DAILY RF: 0 indomethacin 50 mg Capsule 50 mg PO BID PRN (Reason: ud) RF: 0 montelukast 10 mg Tablet 10 mg PO QAM RF: 0 diclofenac sodium 50 mg Tablet,Delayed Release (Dr/Ec) 50 mg PO TID PRN (Reason: Pain) RF: 0 oxycodone-acetaminophen [Percocet] 7.5-325 mg Tablet 1 tab PO QID PRN (Reason: Pain) RF: 0 paroxetine HCl 40 mg Tablet 40 mg PO QAM RF: 0 topiramate [Topamax] 100 mg Tablet 100 mg PO UD RF: 0 buspirone 15 mg Tablet 15 mg PO UD RF: 0 bisacodyl 5 mg Tablet 5 mg PO HS RF: 0 rosuvastatin 10 mg Tablet 10 mg PO HS RF: 0 pregabalin [Lyrica] 150 mg Capsule 150 mg PO BID RF: 0 cholecalciferol (vitamin D3) [Vitamin D3] 125 mcg (5,000 unit) Tablet 5,000 unit PO DAILY RF: 0 Linzess 290 mcg Capsule 290 mcg PO QAM RF: 0 Spiriva Respimat 2.5 mcg/actuation Mist 2 puff INHALATION DAILY RF: 0 iron 1 tab PO DAILY RF: 0 levothyroxine [Synthroid] 75 mcg Tablet 75 mcg PO QAM RF: 0 sucralfate [Carafate] 1 gram Tablet 1 g PO BID RF: 0 Chantix 1 mg Tablet 1 mg PO UD RF: 0 Discharge Orders: Discharge Order (Routine); Ordered 09/12/19 Ordered By: Pedro Luis Garcia/Other Patient Handouts: DVT Prevention Admission Data Admit Date/Time: 09/09/19 14:51 Attending Provider: Pedro Luis Todd Admit Provider: Pedro Luis Todd Primary Care Provider: Kirk Goodrich Other Providers: Omar Rodriguez ; Daniel Joseph ; Lexy Burton Other Interventions: Discharge Summary Assessment (RN) Last Done: 09/12/19 13:49
== END 2019-09-12 17:00 | disposition home or self-care (01) | DRG 460 ==
LOC: ASU 09:09 → 3E 14:51